=== PATIENT | female | born 1985 | race Two or more races ===

== ENCOUNTER → 2020-10-30 | Outpatient (CLI) | payer OTHER | END | disposition home or self-care (01) | LOC: PRENATAL 09:19 | PROVIDERS: ATTEND Obstetrics & Gynecology Maternal & Fetal Medicine | DX: O26.842 Uterine size-date discrepancy, second trimester (principal); O99.212 Obesity complicating pregnancy, second trimester; Z36.89 Encounter for other specified antenatal screening; Z3A.15 15 weeks gestation of pregnancy ==

== ENCOUNTER 2020-12-31 10:51 | Inpatient (IN) | payer OTHER ==
[~2020-12-31] VITALS: Ht 180.3 cm; Wt 117.9 kg
[2021-01-02] MEDS ORDERED: PRENATAL CAPLE1 EAC1 PO (11:45)
[2021-01-02] MEDS ORDERED: DUI500 PO (11:50)
== END 2021-01-04 15:00 | disposition home or self-care (01) | DRG 833 ==
LOC: OBS/DEL 10:51 → LDR 01-02 10:47
PROVIDERS: ADMIT Obstetrics & Gynecology Obstetrics; ATTEND Obstetrics & Gynecology Obstetrics
PROC: 4A1HXFZ Monitoring of Products of Conception, Cardiac Rhythm, External Approach (ICD-10-PCS; principal; 2021-01-02)
PROC: BY4CZZZ Ultrasonography of Second Trimester, Single Fetus (ICD-10-PCS; 2021-01-02)
PROC: BW40ZZZ Ultrasonography of Abdomen (ICD-10-PCS; 2021-01-03)
DX: O23.42 Unspecified infection of urinary tract in pregnancy, second trimester (principal); Z3A.24 24 weeks gestation of pregnancy

== ENCOUNTER 2021-02-02 09:14 | Outpatient (CLI) | payer OTHER ==
[~2021-02-02 09:14] MED LIST: DUI500 PO; PRENATAL CAPLE1 EAC1 PO
== END 2021-02-02 10:14 | disposition home or self-care (01) ==
LOC: PRENATAL 09:14
PROVIDERS: ATTEND Obstetrics & Gynecology Maternal & Fetal Medicine
DX: O35.0XX1 Maternal care for (suspected) central nervous system malformation in fetus, fetus 1 (principal); O35.3XX1 Maternal care for (suspected) damage to fetus from viral disease in mother, fetus 1; O98.513 Other viral diseases complicating pregnancy, third trimester; O99.213 Obesity complicating pregnancy, third trimester; O09.523 Supervision of elderly multigravida, third trimester; Z36.89 Encounter for other specified antenatal screening; Z3A.28 28 weeks gestation of pregnancy

== ENCOUNTER 2021-03-29 18:07 | Inpatient (IN) | payer OTHER ==
[~2021-03-29] VITALS: Ht 152.4 cm; Wt 132.9 kg
[2021-03-30] MEDS ORDERED: BAYER CHILDREN'81 MG PO (15:49)
[2021-03-30] MEDS ORDERED: NIFEDIPINE20 MG PO ×2 (15:50→15:51)
== END 2021-03-31 13:43 | disposition home or self-care (01) | DRG 833 ==
LOC: OBS/DEL 18:07 → LDR 03-30 15:21 → OBS/DEL 03-30 15:21 → LDR 03-31 13:43
PROVIDERS: ADMIT Obstetrics & Gynecology Obstetrics; ATTEND Obstetrics & Gynecology Obstetrics
PROC: 4A1HXFZ Monitoring of Products of Conception, Cardiac Rhythm, External Approach (ICD-10-PCS; principal; 2021-03-30)
PROC: BY4FZZZ Ultrasonography of Third Trimester, Single Fetus (ICD-10-PCS; 2021-03-30)
DX: O47.1 False labor at or after 37 completed weeks of gestation (principal); Z3A.37 37 weeks gestation of pregnancy

== ENCOUNTER 2021-04-09 13:43 | Inpatient (IN) | payer OTHER ==
[~2021-04-09] VITALS: Ht 180.3 cm; Wt 133.8 kg
[~2021-04-09 13:43] MED LIST changes: +BAYER CHILDREN'81 MG PO; +NIFEDIPINE20 MG PO
[2021-04-09] MEDS ORDERED: NIFEDIPINE10 MG PO (16:29)
[2021-04-09] MEDS ORDERED: PROBIOTIC1 EAC2 PO (16:29)
== END 2021-04-12 17:03 | disposition home or self-care (01) | DRG 785 ==
LOC: SURG-SUITE 13:43 → LDR 13:43 → SURG-SUITE 19:39
PROVIDERS: ADMIT Obstetrics & Gynecology Obstetrics; ATTEND Obstetrics & Gynecology Obstetrics
PROC: 0UB70ZZ Excision of Bilateral Fallopian Tubes, Open Approach (ICD-10-PCS; 2021-04-09)
PROC: 4A1HXFZ Monitoring of Products of Conception, Cardiac Rhythm, External Approach (ICD-10-PCS; 2021-04-09)
PROC: 10D00Z1 Extraction of Products of Conception, Low, Open Approach (ICD-10-PCS; principal; 2021-04-09 17:45)
DX: O34.211 Maternal care for low transverse scar from previous cesarean delivery (principal); Z30.2 Encounter for sterilization; Z37.0 Single live birth; Z3A.38 38 weeks gestation of pregnancy

== ENCOUNTER 2021-04-17 11:03 | Inpatient (IN) | payer OTHER ==
[~2021-04-17] VITALS: Ht 180.3 cm; Wt 131.5 kg
[~2021-04-17 11:03] MED LIST changes: +NIFEDIPINE10 MG PO; +PROBIOTIC1 EAC2 PO
[2021-04-19] MEDS ORDERED: NIFEDIPINE ER30 M1 (13:36)
== END 2021-04-26 14:37 | disposition home or self-care (01) | DRG 776 ==
LOC: ER 11:03 → OB/GYN 04-18 12:19
PROVIDERS: ADMIT Obstetrics & Gynecology Obstetrics; ATTEND Obstetrics & Gynecology Obstetrics
PROC: BU46ZZZ Ultrasonography of Uterus (ICD-10-PCS; principal; 2021-04-17)
PROC: BW4GZZZ Ultrasonography of Pelvic Region (ICD-10-PCS; 2021-04-22)
DX: O86.02 Infection of obstetric surgical wound, deep incisional site (principal); O99.215 Obesity complicating the puerperium; B96.89 Other specified bacterial agents as the cause of diseases classified elsewhere